=== PATIENT | female | born 1945 | race Caucasian/White ===

== ENCOUNTER 2021-06-16 18:55 | Inpatient (IN) | payer OTHER ==
[~2021-06-16] VITALS: Ht 170.2 cm; Wt 93.4 kg
[2021-06-16] MEDS ORDERED: LEVOTHYROXINE100 MCG PO (22:35)
[2021-06-16] MEDS ORDERED: ELIQUIS5 MG PO (22:39)
[2021-06-16] MEDS ORDERED: MONTELUKAST SOD10 MG PO (22:40)
[2021-06-16] MEDS ORDERED: XANAX 0.25 MG0.25 MG PO (22:41)
[2021-06-16 23:13] LABS: HEMOGLOBIN 12.1 gm/dl (12.3-15.3); RED BLOOD COUNT 5.31 M/UL (4.00-5.10); WHITE BLOOD COUNT 10.6 K/UL (4.5-11.0)
[2021-06-17] MEDS ORDERED: VITAMIN D21250 MCG PO (12:51)
[2021-06-17] MEDS ORDERED: PROVENTIL HFA6.7 GM INH (22:37)
[2021-06-17] MEDS ORDERED: AZELASTINE137 MCG/0. (22:38)
[2021-06-17] MEDS ORDERED: HYDROCODON-ACE1 EAC6 PO (22:39)
[2021-06-17] MEDS ORDERED: SYMBICORT 16010.2 GM INH (22:41)
[2021-06-18 02:08] LABS: HEMOGLOBIN 11.6 gm/dl (12.3-15.3); RED BLOOD COUNT 5.16 M/UL (4.00-5.10); WHITE BLOOD COUNT 10.3 K/UL (4.5-11.0)
[2021-06-18 02:33] LABS: BUN/CREATININE RATIO 15 (0-10)
[2021-06-19 02:22] LABS: HEMOGLOBIN 10.4 gm/dl (12.3-15.3); RED BLOOD COUNT 4.65 M/UL (4.00-5.10)
[2021-06-19 02:57] LABS: BUN/CREATININE RATIO 22 (0-10)
[2021-06-20 03:02] LABS: HEMOGLOBIN 9.9 gm/dl (12.3-15.3); RED BLOOD COUNT 4.37 M/UL (4.00-5.10); WHITE BLOOD COUNT 11.6 K/UL (4.5-11.0)
[2021-06-20 04:06] LABS: BUN/CREATININE RATIO 26 (0-10)
--- NOTE | 2021-06-20 10:53 | NUR ---
PTS FAMILY MEMBER WALKED OUT OF THE ROOM AND THE PATIENT WAS COMPLAINING ON THE CONSTANT RINGING OF HER MONITOR THAT WAS RINGING OUT THAT SHE WAS TACHY. THE HEART RATE WAS 90 BPM. I THEN NOTIFIED OUR HYDRAULIC GOVERNOR ASSEMBLER AND STATED THAT I WAS GOING TO TURN THE PATIENTS MONITOR IN THE ROOM TO COMFORT MEASURES SO THE PATIENT WASNT GETTING IRRITATED. TELE WAS ALSO TOLD THAT THE PATIENTS MONITOR WAS ON COMFORT MEASURES WITH THE MONITOR BUT SHE WAS NOT ACTUALLY COMFORT MEASURES. PT WILL CONTINUE TO BE MONITORED BY TELE AND THE UNIT.
[2021-06-21 03:22] LABS: HEMOGLOBIN 9.7 gm/dl (12.3-15.3); RED BLOOD COUNT 4.3 M/UL (4.00-5.10); WHITE BLOOD COUNT 9.2 K/UL (4.5-11.0)
[2021-06-21] MEDS ORDERED: LOPRESSOR 25 MG25 MG PO (09:25)
--- NOTE | 2021-06-21 13:05 | NUR ---
WAS CONTACTED FOR CLEARANCE FOR DISCHARGE. HE STATED THAT SHE WAS CLEARED BY HIS STANDPOINT BUT HE WOULD LIKE HER TO GO HOME WITH PAIN MEDICATION FOR HER RECENT HIP SURGERY. HE STATED THAT HE WOULD HAVE TO CALL THE OFFICE AND GET A SCRIPT CALLED IN. THE PATIENT WAS THEN DISCHARGED HOME WITH HOME HEALTH AND THE DAUGHTER WAS OFFERED TO ASK QUESTIONS. THE PATIENT WAS IN UNDERSTANDING ABOUT HER PAIN MANAGEMENT UNTIL HER HIP HAS HEALED.
== END 2021-06-21 12:41 | disposition home or self-care (01) | DRG 522 ==
LOC: PROG CARE 18:55
PROVIDERS: Internal Medicine; Orthopaedic Surgery; ADMIT Internal Medicine
PROC: B24BZZZ Ultrasonography of Heart with Aorta (ICD-10-PCS; 2021-06-17)
PROC: 0SR902Z Replacement of Right Hip Joint with Metal on Polyethylene Synthetic Substitute, Open Approach (ICD-10-PCS; principal; 2021-06-18 12:51)
DX: S72.001A Fracture of unspecified part of neck of right femur, initial encounter for closed fracture (principal); S52.121A Displaced fracture of head of right radius, initial encounter for closed fracture; Z20.822 Contact with and (suspected) exposure to COVID-19; J45.909 Unspecified asthma, uncomplicated; R79.89 Other specified abnormal findings of blood chemistry; I10 Essential (primary) hypertension; I07.1 Rheumatic tricuspid insufficiency; E66.9 Obesity, unspecified; W01.0XXA Fall on same level from slipping, tripping and stumbling without subsequent striking against object, initial encounter; Y93.01 Activity, walking, marching and hiking; S50.01XA Contusion of right elbow, initial encounter; E03.9 Hypothyroidism, unspecified; I48.0 Paroxysmal atrial fibrillation; Z79.01 Long term (current) use of anticoagulants; Z86.73 Personal history of transient ischemic attack (TIA), and cerebral infarction without residual deficits; Y92.812 Truck as the place of occurrence of the external cause; Z83.3 Family history of diabetes mellitus; Z82.49 Family history of ischemic heart disease and other diseases of the circulatory system; Z68.32 Body mass index [BMI] 32.0-32.9, adult
CPT/HCPCS: ECHO; 36415; 71045; 73060; 73080; 73200; 73502; 76000; 80048; 80053; 82550; 82553; 82607; 82746; 83735; 84100; 84439; 84443; 84484; 85025; 85027; 86850; 86900; 86901; 93005; 93306; 94640; 94664; 94760; 97110; 97110-GP-CQ; 97116-GP-CQ; 97162; 97166; 97535; C1776; J0690; J1100; J1170; J1650; J1885; J2001; J2270; J2370; J2704; J2795; J3010; J3370; J7030; J7050; J7120; U0002